=== PATIENT | male | born 1960 | race Caucasian/White ===

== ENCOUNTER 2016-10-01 11:16 | Emergency (ER) | payer OTHER ==
[2016-10-01 15:13] VITALS: BP 147/84
== END 2016-10-01 15:13 | disposition home or self-care (01) ==
LOC: ED 11:16
DX: S39.012A Strain of muscle, fascia and tendon of lower back, initial encounter (principal); X50.0XXA Overexertion from strenuous movement or load, initial encounter; Y93.89 Activity, other specified; Y92.89 Other specified places as the place of occurrence of the external cause; Y99.0 Civilian activity done for income or pay
CPT/HCPCS: J1885

== ENCOUNTER 2017-09-13 08:21 | Emergency (ER) | payer OTHER ==
[~2017-09-13] VITALS: Ht 165.1 cm; Wt 82.1 kg
[2017-09-13 08:27] VITALS: Ht 165.1 cm; Wt 82.1 kg
[2017-09-13 09:44] VITALS: BP 128/81
== END 2017-09-13 09:44 | disposition home or self-care (01) ==
LOC: ED 08:21
DX: M46.1 Sacroiliitis, not elsewhere classified (principal)
CPT/HCPCS: J1885